=== PATIENT | male | born 1945 | race Caucasian/White ===

== ENCOUNTER 2019-05-15 09:59 | Day surgery (SDC) | payer OTHER ==
[~2019-05-15] VITALS: Ht 182.9 cm; Wt 81.0 kg
[~2019-05-15 09:59] MED LIST: ACET500 PO; ATOR20 PO; Aspir 8181 MG PO; BUDE10.22 INH; LISI20 PO
[2019-05-15] MEDS ORDERED: Norvasc2.5 MG PO (10:15)
[2019-05-15] MEDS ORDERED: ZESTORETIC 20-1 EAC1 PO (10:17)
[2019-05-15] MEDS ORDERED: Viagra100 MG PO (10:19)
[2019-05-15] MEDS ORDERED: ABAT250V (10:20)
--- NOTE | 2019-05-15 13:26 | NUR ---
PT RETURNED TO RECOVERY ROOM IN BED. LEFT GROIN SITE SOFT NON-TENDER WITH NO HEMATOMA AND NO PULSATILE BLEEDING. LEFT DP AND PT PULSES DOPPLER. CALL LIGHT IN REACH.
--- NOTE | 2019-05-15 13:32 | NUR ---
RIGHT PT PULSE IS DOPPLER.
--- NOTE | 2019-05-15 13:54 | NUR ---
NO CHANGES TO LEFT GROIN SITE. PT EATING LUNCH AND WATCHING TV.
--- NOTE | 2019-05-15 15:58 | NUR ---
1540 PATIENT UP AND OOB TO THE RESTROOM. VOIDED. WALKING ON THE UNIT. GAIT STEADY. LEFT GROIN WITH DRESSING CLEAN DRY AND INTACT. NO PAIN NOTED. REVIEWED DISCHARGE INSTRUCTIONS AND ALL QUESTIONS ANSWERED.
--- NOTE | 2019-05-15 16:16 | NUR ---
1605 DR. KUMAR AT THE BEDSIDE TO SPEAK WITH THE PATIENT. ALL QUESTIONS ANSWERED. PATIENT WILL RETURN FOR INTERVENTION ON THE OTHER LEG IN TWO WEEKS.
[2019-05-15] MEDS ORDERED: CLOP75 PO (16:24)
--- NOTE | 2019-05-15 16:35 | NUR ---
4584 PATIENT GIVEN PLAVIX 75 MG ORAL NOW PER DR. BENTLEY VERBAL ORDER. PATIENT DISCHARGED HOME AMBULATORY WITH . NO PAIN NOTED AND GROIN SITE, SOFT, CLEAN AND DRY.
== END 2019-05-15 16:43 | disposition home or self-care (01) ==
LOC: MHTC 09:59
DX: I70.213 Atherosclerosis of native arteries of extremities with intermittent claudication, bilateral legs (principal)
CPT/HCPCS: 37220; 37222; 37228; 75625; 75716; 75774; 85347; 99152; 99153; A9270-GY; C1725; C1760; C1769; C1887; C1894; J1644; J2250; J3010; J7030; Q9967

== ENCOUNTER 2019-05-29 06:42 | Day surgery (SDC) | payer OTHER ==
[~2019-05-29] VITALS: Ht 188 cm; Wt 81.0 kg
[~2019-05-29 06:42] MED LIST changes: +ABAT250V; +CLOP75 PO; +Nicorette4 MG BC; +Norvasc2.5 MG PO; +Viagra100 MG PO; +ZESTORETIC 20-1 EAC1 PO
--- NOTE | 2019-05-29 11:16 | NUR ---
PT discharged ambulated with ALEXAN[employer], Pt vss, denies pain. Instructed pt to wait for at least 72 hrs to resume his golfing. Pt up stable, iv removed cath intact left a/c. Pt reviewed all documentation regarding discharge as well as stent card in [facility].
== END 2019-05-29 11:33 | disposition home or self-care (01) ==
LOC: MHTC 06:42
DX: I70.222 Atherosclerosis of native arteries of extremities with rest pain, left leg (principal); E78.5 Hyperlipidemia, unspecified; I10 Essential (primary) hypertension; F17.210 Nicotine dependence, cigarettes, uncomplicated; Z95.820 Peripheral vascular angioplasty status with implants and grafts; Z79.82 Long term (current) use of aspirin; Z79.899 Other long term (current) drug therapy
CPT/HCPCS: 37221; 37225; 75710; 76937; 99152; 99153; C1724; C1769; C1876; C1887; C1894; C2623; J1644; J2250; J3010; J7030; Q9967

== ENCOUNTER 2021-09-19 19:34 | Emergency (ER) | payer OTHER ==
[~2021-09-19] VITALS: Ht 188 cm; Wt 73.0 kg
== END 2021-09-19 20:42 | disposition home or self-care (01) ==
LOC: ER 19:34
DX: J18.9 Pneumonia, unspecified organism (principal); J44.9 Chronic obstructive pulmonary disease, unspecified; F17.200 Nicotine dependence, unspecified, uncomplicated; Z79.899 Other long term (current) drug therapy
CPT/HCPCS: 99282

== ENCOUNTER 2023-11-15 07:08 | Day surgery (SDC) | payer OTHER ==
[~2023-11-15] VITALS: Ht 188 cm; Wt 64.0 kg
[~2023-11-15 07:08] MED LIST changes: +ALBU90OI INH; +NITR.4SL SL
[2023-11-15] MEDS ORDERED: Heparin Sodium 1000 Units/ML 10ML MDV ONE ×2 (07:17→08:30)
[2023-11-15] MEDS ORDERED: NS 500 ML IV ONE (07:17)
[2023-11-15 07:28] VITALS: BP 164/106
[2023-11-15 07:45] VITALS: BP 150/88
[2023-11-15] MEDS ORDERED: FentaNYL Citrate 50 MCG/ML 2 ML Injection ONE ×2 (08:29→09:10)
[2023-11-15] MEDS ORDERED: Midazolam HCl 1MG / ML 2ML Vial ONE ×2 (08:29→09:10)
[2023-11-15] MEDS ORDERED: NS 1,000 ML IV ONE (08:29)
[2023-11-15 08:30] VITALS: BP 144/84
[2023-11-15 10:00] VITALS: BP 143/91
[2023-11-15 10:15] VITALS: BP 149/79
[2023-11-15 10:30] VITALS: BP 161/103
--- NOTE | 2023-11-15 11:22 | NUR ---
R FLANK NEPHROSTOMY TUBE CLAMPED AND BAG REMOVED. 300ML CLEAR PINK URINE OUT. IV REMOVED. PT AND VERBALIZED UNDERSTANDING OF WRITTEN AND VERBAL D/C INST. PT TAKEN OUT OF THE HRT CENTER VIA W/C.
== END 2023-11-15 11:30 | disposition home or self-care (01) ==
LOC: MHTC 07:08
DX: N13.30 Unspecified hydronephrosis (principal); I12.9 Hypertensive chronic kidney disease with stage 1 through stage 4 chronic kidney disease, or unspecified chronic kidney disease; N18.9 Chronic kidney disease, unspecified; E78.5 Hyperlipidemia, unspecified; Z87.891 Personal history of nicotine dependence; Z79.82 Long term (current) use of aspirin; Z79.899 Other long term (current) drug therapy
CPT/HCPCS: 50432; 50693; 76937; 99152; 99153; C1729; C1769; C1887; C2617; J1644; J2250; J3010; J7030; J7040; Q9967